=== PATIENT | female | born 1990 | race Caucasian/White ===

== ENCOUNTER 2016-03-06 18:49 | Emergency (ER) | payer MEDICAID | END 2016-03-07 00:17 | disposition home or self-care (01) | LOC: D.ER 18:49 | DX: R10.31 Right lower quadrant pain (principal); S39.011A Strain of muscle, fascia and tendon of abdomen, initial encounter; W19.XXXA Unspecified fall, initial encounter; Y93.89 Activity, other specified; Y92.89 Other specified places as the place of occurrence of the external cause; F17.200 Nicotine dependence, unspecified, uncomplicated; M54.9 Dorsalgia, unspecified ==

== ENCOUNTER → 2016-05-14 12:11 | Outpatient (CLI) | payer MEDICAID | END | disposition home or self-care (01) | LOC: D.MRI 12:11 | DX: M54.5 Low back pain (principal) ==

== ENCOUNTER → 2016-10-24 10:58 | Outpatient (CLI) | payer MEDICAID | END | disposition home or self-care (01) | LOC: D.MRI 10:58 | DX: M54.5 Low back pain (principal) ==